=== PATIENT | female | born 1945 | race Caucasian/White ===

== ENCOUNTER 2019-03-22 19:07 | Inpatient (IN) ==
[2019-03-22] MEDS ORDERED: ASPIRIN PO ONE (19:35)
--- NOTE | 2019-03-22 20:43 | Diag Imaging Result Doc PS360 ---
CHEST-2 VIEWS - 03/22/2019 INDICATION: CHEST PAIN COMPARISON: 06/12/2012 FINDINGS: There is some trace reticular nodular infiltrate in the right upper lobe. Heart size and pulmonary vascularity is normal. No pneumothorax or pleural effusion. There is some trace atelectasis at the left lung base. IMPRESSION: Right upper lobe reticulonodular infiltrates suggesting atypical pneumonia. Trace atelectasis in the left lower lobe. Electronically signed by Jalen Gaxiola 03/22/2019 8:41 PM
[2019-03-22 20:44] LABS: BASO# 0.01 X1000 (0.0-0.2); BASO% 0.1 % (0.0-0.8); EOS# 0.04 X1000 (0.0-0.7); EOS% 0.5 % (0.0-10.0); HEMATOCRIT 39.2 % (37.0-47.0); HEMOGLOBIN 13.3 g/dL (12.0-16.0); LYMPH# 1.42 X1000 (1.2-3.4); MCHC 33.9 g/dL (33-37); MCV 88.3 FL (81-99); MONO# 0.75 X1000 (0.11-0.59); MPV 9.6 FL (7.4-10.4); NEUT# 6.11 X1000 (1.4-6.5); NEUT% 73.4 % (42.2-75.2); PLT 267 X1000 (130-400); RBC 4.44 XMIL (4.2-5.4); RDW 13.3 % (11.5-14.5); WBC 8.33 X1000 (4.8-10.8)
[2019-03-22 20:49] LABS: INR 1.3; PROTIME 17.2 Seconds (11.0-16.0)
[2019-03-22 20:50] LABS: PTT 42.2 Seconds (22.3-41.8)
[2019-03-22 21:03] LABS: AGAP 14; ALBUMIN 3.5 g/dL (3.5-5.0); ALKALINE PHOSPHATASE 103 U/L (32-104); BUN 16 mg/dL (8-22); CALCIUM 8.9 mg/dL (8.8-10.2); CHLORIDE 95 mmol/L (98-107); CK PROFILE 61 U/L (24-173); COSMO 270; CREATININE 0.9 mg/dL (0.5-0.9); ESTIMATED GFR > 60; GLUCOSE 150 mg/dL (70-104); GOT 15 U/L (10-30); GPT 10 U/L (10-36); SODIUM 133 mmol/L (136-145); TCO2 24 mmol/L (25-35); TOTAL BILIRUBIN 0.37 mg/dL (0.20-1.00); TOTAL PROTEIN 6.9 g/dL (6.3-8.3)
--- NOTE | 2019-03-22 21:46 | Diag Imaging Result Doc PS360 ---
CT HEAD W/O CONTRAST - 03/22/2019 INDICATION: left leg weakness COMPARISON: 02/08/2018 FINDINGS: Stable focal area of encephalomalacia at the left frontal lobe. No intracranial mass or hemorrhage. The skull is intact. The sinuses, mastoids, and middle ears are clear. IMPRESSION: No acute process. This exam was performed using automated exposure control, adjustment of mA or kV according to patient size, and/or use of iterative reconstruction technique Electronically signed by Jalen Gaxiola 03/22/2019 9:44 PM
--- NOTE | 2019-03-22 21:51 | Diag Imaging Result Doc PS360 ---
CT ANGIOGRAM THORAX - 03/22/2019 INDICATION: chest pain with left leg weakness r/o dissection TECHNIQUE: Axial CT images were obtained after administering intravenous contrast. Coronal MIP images were generated. COMPARISON: None FINDINGS: There is no aneurysm or dissection. There is some scattered vascular disease of the aorta, great vessels, and coronary arteries. Heart size is normal with no pericardial effusion. No pulmonary embolism. No adenopathy. There is a large hiatal hernia with the majority of the stomach up in the chest. Otherwise upper abdominal images appear normal. There are indeed some trace nodular tree-in-bud infiltrates in the lateral right upper lobe corresponding with the finding on the chest x-ray. There is also minimal amount in the right lower lobe. There is some atelectasis at the left lower lobe but no infiltrates. There are moderate degenerative changes of the spine. No acute or suspicious bony lesion. IMPRESSION: 1. No acute vascular abnormality. 2. Faint tree-in-bud nodular infiltrates throughout the right lung. Likely represent atypical pneumonia such as atypical mycobacteria or fungal infection. 3. Fairly large hiatal hernia. This exam was performed using automated exposure control, adjustment of mA or kV according to patient size, and/or use of iterative reconstruction technique Electronically signed by Jalen Gaxiola 03/22/2019 9:49 PM
[2019-03-22] MEDS ORDERED: POTASSIUM CHLORIDE 20% LIQUID PO ONE (22:02)
[2019-03-22] MEDS ORDERED: ZITHROMAX 500 MG/NS 500 MG/250 ML IVPB IV ONE (22:07)
--- NOTE | 2019-03-22 22:17 | PROVIDER DOCUMENTATION ---
This chart was entered by Lidia Hernandez Scribe, acting as scribe for Mariya Lockett MD. HPI-Chest Pain - General Chief Complaint: Chest Pain Stated Complaint: TIGHTNESS IN CHEST/PAIN IN NECK & LEFT ARM Time Seen by Provider: 03/22/19 20:30 Source: patient, family Allergies/Adverse Reactions: Patient Allergies Allergy/AdvReac Type Severity Reaction Status Date / Time sulfamethoxazole Allergy ANAPHYLAXIS Verified 02/16/18 12:41 [From Bactrim] trimethoprim [From Bactrim] Allergy ANAPHYLAXIS Verified 02/16/18 12:41 Sulfa (Sulfonamide AdvReac ANAPHYLAXIS Verified 02/16/18 12:41 Antibiotics) Home Medications: Home Medication List Medication Instructions Recorded Confirmed Last Taken Type Amlodipine [Norvasc] 10 mg PO DAILY 11/24/14 02/16/18 11/24/14 06:00 History Atorvastatin Calcium [Lipitor] 20 mg PO DAILY 11/24/14 02/16/18 11/24/14 08:00 History Citalopram [Celexa] 40 mg PO DAILY 11/24/14 02/16/18 11/24/14 06:00 History Furosemide [Lasix] 20 mg PO DAILY 11/24/14 02/16/18 11/24/14 07:00 History Losartan/Hydrochlorothiazide 1 each PO DAILY 11/24/14 02/16/18 11/24/14 09:00 History [Losartan-Hctz 50-12.5 mg Tab] Pantoprazole Sodium [Protonix] 20 mg PO DAILY 11/24/14 02/16/18 11/24/14 08:00 History Potassium Chloride [Klor-Con M10] 10 meq PO DAILY 11/24/14 02/16/18 11/24/14 08:00 History Tiotropium [place] Inhaler 1 puff INH RTDAILY 11/24/14 02/16/18 Unknown History [Spiriva] Acetaminophen [Tylenol] 500 mg PO BID 02/16/18 02/16/18 Unknown History Albuterol Sulfate [Ventolin Hfa] 90 mcg INH PRN PRN 02/16/18 02/16/18 Unknown History Apixaban [Eliquis] 5 mg PO BID 02/16/18 02/16/18 Unknown History Baclofen 10 mg PO BID PRN PRN #14 tab 02/16/18 Unknown Rx Fluticasone/Vilanterol [Breo 1 puff INH DAILY 02/16/18 02/16/18 Unknown History Ellipta 100-25 Mcg INH] Ondansetron HCl [Zofran] 4 mg PO PRN PRN 02/16/18 02/16/18 Unknown History Ondansetron HCl [Zofran] 4 mg PO Q8H PRN PRN #14 tab 02/16/18 Unknown Rx Tramadol [Ultram] 50 mg PO Q8HR PRN #14 tab 02/16/18 Unknown Rx - History of Present Illness-CP Nature of Presenting Problem: 73 y/o female presents to ED with tight/pressure-like sternal chest pain r adiating to neck/L arm and LLE weakness onset this morning at about 10am. Pt reports her lower extremities are weak at baseline, but LLE is weaker today. Pt also complains of green/yellow productive cough onset 2-3 weeks ago. Pt states breathing exacerbates her symptoms. Pt is alert and oriented. Location: reports: central Chest Pain Radiation: reports: arms (L), neck Quality of Pain: reports: pressure, tightness Severity in ED: moderate Onset/Duration: this morning, other (2-3 weeks ago) Timing: still present Context/Activities at Onset: reports: none Modifying Factors: improves with: nothing Associated Symptoms: reports: denies symptoms Nitro Today/Relief: no nitro taken today Aspirin Treatment Today: 325 mg x 1, provided by ED Prior Chest Pain/Cardiac Workup: reports: heart attack Similar Symptoms Previously?: Yes Recently Seen Here or By Another Healthcare Provider: No Review of Systems - Adult - REVIEW OF SYSTEMS - ADULT Constitutional: denies: chills, fever Eyes: reports: no symptoms reported Ears, Nose, Mouth & Throat: reports: no symptoms reported Cardiovascular: reports: chest pain (radiating to neck and L arm). denies: palpitations Respiratory: reports: cough. denies: shortness of breath Gastrointestinal: denies: abdominal pain, diarrhea, nausea, vomiting Genitourinary: reports: no symptoms reported Musculoskeletal: denies: back pain, joint pain Integumentary: reports: no symptoms reported Neurological: reports: other (LLE weakness). denies: dizziness/vertigo, seizure Psychiatric: reports: no symptoms reported Endocrine: reports: no symptoms reported Hematologic/Lymphatic: reports: no symptoms reported Allergic/Immunologic: reports: no symptoms reported All Other Systems: Reviewed and Negative Past History - Adult - PAST MEDICAL HISTORY-ADULT Review of Records: reports: Old Records Reviewed, Nursing Assessment Review, Medications Reviewed Major Childhood Illnesses: reports: denies history Cardiovascular: reports: HTN, hyperlipidemia, MA Respiratory: reports: COPD Gastrointestinal: reports: GERD Obstetrical/Gynecological: reports: denies history, other (cervical cancer) Genitourinary: reports: denies history Musculoskeletal: reports: denies history Neurological: reports: CVA, TIA Psychiatric: reports: anxiety, depression Endocrine/Immune: reports: denies history Other Conditions: reports: denies history, other cancer (skin), cataract/glaucoma - PRIOR SURGERIES/PROCEDURES Surgical/Procedure History: reports: appendectomy, cholecystectomy, hysterectomy , orthopedic (extremity) (R ankle), other (cataract removal; bilateral corneal implants) - IMMUNIZATION STATUS Childhood Immunizations: See Nurse Assessment Flu Vaccine: See Nurse Assessment - FAMILY HISTORY Family History: reviewed, not pertinent - SOCIAL HISTORY Smoking: less than 1 pack/day Provider spent 3-5 mins advising pt. on dangers of tobacco.: Discussed manners to quit use, and f/u contacts for add'l counseling. Substance Use: none/never Alcohol Use Frequency: never Living Situation: family Physical Exam-General - PHYSICAL EXAM-ADULT Initial Vital Signs Reviewed: Yes - CONSTITUTIONAL General Appearance: appears well, alert, no apparent distress - EYES Eyes: PERRL/EOMI - HEAD, EARS, NOSE, MOUTH & THROAT HENMT: normocephalic/atraumatic, moist mucous membranes - NECK Neck: non-tender, full range of motion - RESPIRATORY Respiratory: chest non-tender, lungs clear, normal breath sounds - CARDIOVASCULAR Cardiovascular: normal peripheral pulses, regular rate, rhythm, no edema, no JVD - GASTROINTESTINAL (ABDOMEN) Abdominal Exam: non tender, soft - MUSCULOSKELETAL Back Exam: normal inspection Extremity: normal range of motion, non-tender, normal gait - SKIN Integumentary: normal color, warm/dry - NEUROLOGIC 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 II-XII nml as tested (Intact), grossly normal, no motor/sensory deficits - PSYCHIATRIC Psych/Mental Status: normal mood/affect, normal thought content, normal thought process, oriented x 3 - HEART Score HEART Score: History: Highly Suspicious HEART Score: ECG: Normal HEART Score: Age: > or = 65 Years HEART Score: Risk Factors for Atherosclerotic Disease: > or = 3 Risk Factors or History of Atherosclerotic Disease HEART Score: Troponin: < or = Normal Limit Total HEART Score:: 6 Progress - PLAN OF CARE/RESULTS Progress/Plan/Lab Results: Vital Signs - 8 hr 03/22/19 19:12 03/22/19 20:04 03/22/19 20:31 Temperature 98.1 F Pulse Rate 84 79 75 Respiratory Rate 18 20 20 Blood Pressure 171/65 187/70 O2 Sat by Pulse Oximetry 94 L 95 03/22/19 21:01 Temperature Pulse Rate 70 Respiratory Rate 18 Blood Pressure 138/58 O2 Sat by Pulse Oximetry 90 L Laboratory Results - last 24 hr 03/22/19 03/22/19 03/22/19 20:02 20:02 20:02 WBC 8.33 RBC 4.44 Hgb 13.3 Hct 39.2 MCV 88.3 MCH 30.0 MCHC 33.9 RDW Std Deviation 13.3 Plt Count 267 MPV 9.6 Immature Gran % (Auto) 0.0 Neut % (Auto) 73.4 Lymph % (Auto) 17.0 L [place] % (Auto) 9.0 Eos % (Auto) 0.5 Baso % (Auto) 0.1 Immature Gran # (Auto) 0.00 Neut # (Auto) 6.11 Lymph # (Auto) 1.42 [place] # (Auto) 0.75 H Eos # (Auto) 0.04 Baso # (Auto) 0.01 PT INR PTT (Actin FS) Sodium 133 L Potassium 3.0 L Chloride 95 L Carbon Dioxide 24 L Anion Gap 14 BUN 16 Creatinine 0.9 Estimated GFR/1.73 m2 > 60 BUN/Creatinine Ratio 18 Glucose 150 H Calculated Osmolality 270 Calcium 8.9 Total Bilirubin 0.37 AST 15 ALT 10 Alkaline Phosphatase 103 Creatine Kinase 61 Troponin T Dry-G-Rftcpnoihvo Pept 219 Total Protein 6.9 Albumin 3.5 Globulin 3.4 Albumin/Globulin Ratio 1.0 03/22/19 03/22/19 20:02 20:02 WBC RBC Hgb Hct MCV MCH MCHC RDW Std Deviation Plt Count MPV Immature Gran % (Auto) Neut % (Auto) Lymph % (Auto) [place] % (Auto) Eos % (Auto) Baso % (Auto) Immature Gran # (Auto) Neut # (Auto) Lymph # (Auto) [place] # (Auto) Eos # (Auto) Baso # (Auto) PT 17.2 H INR 1.30 PTT (Actin FS) 42.2 H Sodium Potassium Chloride Carbon Dioxide Anion Gap BUN Creatinine Estimated GFR/1.73 m2 BUN/Creatinine Ratio Glucose Calculated Osmolality Calcium Total Bilirubin AST ALT Alkaline Phosphatase Creatine Kinase Troponin T < 0.010 Uam-Z-Ucsvxpzrgll Pept Total Protein Albumin Globulin Albumin/Globulin Ratio Orders Category Date Time Status Cardiac Monitoring DIRECTED Care 03/22/19 19:35 Active Oxygen Therapy- ED Nursing DIRECTED Care 03/22/19 19:35 Active Saline Loc NOW Care 03/22/19 19:35 Active CHEST-2 VIEWS [RAD] Stat Exams 03/22/19 19:[address] ANGIOGRAM THORAX [CT] Stat Exams 03/22/19 20:[address] HEAD W/O CONTRAST [CT] Stat Exams 03/22/19 20:39 Completed BLOOD CULTURE [BLDCUL] Stat Lab 03/22/19 22:07 Uncollected CBC WITH ELECTRONIC DIFF [HEME] Stat Lab 03/22/19 20:02 Completed CK PROFILE [SP CHEM] Stat Lab 03/22/19 20:02 Completed COMPREHENSIVE METABOLIC PANEL [CHEM] Stat Lab 03/22/19 20:02 Completed PRO B-NATRIURETIC PEPTIDE Stat Lab 03/22/19 20:02 Completed PROTIME WITH INR [COAG] Stat Lab 03/22/19 20:02 Completed PTT [COAG] Stat Lab 03/22/19 20:02 Completed TROPONIN T Stat Lab 03/22/19 20:02 Completed Aspirin Med 03/22/19 19:35 Discontinued 325 mg PO NOW ONE Azithromycin 500 mg/Ns [Zithromax 500 mg/Ns] Med 03/22/19 22:07 Active 500 mg in 250 ml IV NOW Potassium Chloride 20% Liquid Med 03/22/19 22:02 Discontinued 40 meq PO NOW ONE CP/SOB/Palp >45 yrs of Age Stat Oth 03/22/19 19:35 Ordered EKG [EKG] Stat Ther 03/22/19 19:13 Ordered EKG [EKG] Stat Ther 03/22/19 19:35 Ordered chest pain with leg weakness no focal weakness on exam. Will further evaluate for causes including but not limited to acs, arrythmia, dissection, pe, ptx, pna, cva tia Result Diagrams: 03/22/19 20:02 03/22/19 20:02 - REASSESSMENT Reassessment #1 Status: improving (feeling well, chest pain resolved no focal weakness on re- exam. ASA given and pt with hypokalemia and atypical appearing infiltrate, potassium repleted and azithromycin given. Will admit for further evaluate and treatment as presentation concering for ACS with possible TIA and has overlying pna. Discussed case with Dr. Sidhu, Hospitalist, who will see and admit pt.) - EKG 1 Time of EKG reading by physician:: 19:20 EKG Read and Signed by:: Mariya Locektt EKG Interpretation (*Must complete 3 of following elements*): Abnormal Rate: 84 Rhythm: NSR [place]: left QRS: other (septal infarct; inferior infarct) ID Interval: normal ST Wave: non-specific ST changes (consider lateral ischemia) - XRAY 1 XRAY Study: Chest Impression: Abnormal ([facility] [address], [address], [place] [address] Department of Imaging Patient: JODY KING Date: 03/22/19#: [id number] : 1945DM Status: PRE ERAcct#: [id number] Age/Sex: 73/FRoom/Bed: Loc: ED Ordering Physician: Mariya Lockett MD Family Physician: Enzo Castaneda MD Reason for Procedure: CHEST PAIN ___ Signed CHEST-2 VIEWS - 03/22/2019 INDICATION: CHEST PAIN COMPARISON: 06/12/2012 FINDINGS: There is some trace reticular nodular infiltrate in the right upper lobe. Heart size and pulmonary vascularity is normal. No pneumothorax or pleural effusion. There is some trace atelectasis at the left lung base. IMPRESSION: Right upper lobe reticulonodular infiltrates suggesting atypical pneumonia. Trace atelectasis in the left lower lobe. Electronically signed by Jalen Gaxiola 03/22/2019 8:41 PM 03/22/192040 Interpreting Physician: Jalen Gaxiola MD Dictated Date/Time: 03/22/192038 cc: Mariya Lockett MD; Enzo Castaneda MD) - CT/MRI 1 CT Study: Thorax, other (Chest) Impression: Abnormal ([facility] [address], [address], [place] [address] Department of Imaging Patient: JODY KING Date: 03/22/19#: [id number] : 1945DM [facility] [id number] Age/Sex: 73/FRoom/Bed: Loc: ED Ordering Physician: Mariya Lockett MD Family Physician: Enzo Castaneda MD Reason for Procedure: thuy pain with left leg weakness r/o dissection Signed CT ANGIOGRAM THORAX - 03/22/2019 INDICATION: chest pain with left leg weakness r/o dissection TECHNIQUE: Axial CT images were obtained after administering intravenous contrast. Coronal MIP images were generated. COMPARISON: None FINDINGS: There is no aneurysm or dissection. There is some scattered vascular disease of the aorta, great vessels, and coronary arteries. Heart size is normal with no pericardial effusion. No pulmonary embolism. No adenopathy. There is a large hiatal hernia with the majority of the stomach up in the chest. Otherwise upper abdominal images appear normal. There are indeed some trace nodular tree-in-bud infiltrates in the lateral right upper lobe corresponding with the finding on the chest x-ray. There is also minimal amount in the right lower lobe. There is some atelectasis at the left lower lobe but no infiltrates. There are moderate degenerative changes of the spine. No acute or suspicious bony lesion. IMPRESSION: 1. No acute vascular abnormality. 2. Kev nt tree-in-bud nodular infiltrates throughout the right lung. Likely represent atypical pneumonia such as atypical mycobacteria or fungal infection. 3. Fairly large hiatal hernia. This exam was performed using automated exposure control, adjustment of mA or kV according to patient size, and/or use of iterative reconstruction technique Electronically signed by Jalen Gaxiola 03/22/2019 9:49 PM 03/22/192148 Interpreting Physician: Jalen Gaxiola MD Dictated Date/Time: 03/22/192143 cc: Mariya Lockett MD; Enzo Castaneda MD) 2 CT Study: Head Impression: Normal ([facility] [address] [facility], [address], [place] [address] Department of Imaging Patient: JODY KING Date: 03/22/19#: [id number] : 1945DM Status: [facility]#: [id number] Age/Sex: 73/FRoom/Bed: Loc: ED Ordering Physician: Mariya Lockett MD Family Physician: Enzo Castaneda MD Reason for Procedure: left leg weakness ___ Signed CT HEAD W/O CONTRAST - 03/22/2019 INDICATION: left leg weakness COMPARISON: 02/08/2018 FINDINGS: Stable focal area of encephalomalacia at the left frontal lobe. No intracranial mass or hemorrhage. The skull is intact. The sinuses, mastoids, and middle ears are clear. IMPRESSION: No acute process. This exam was performed using automated exposure control, adjustment of mA or kV according to patient size, and/or use of iterative reconstruction technique Electronically signed by Jalen Gaxiola 03/22/2019 9:44 PM 03/22/192143 Interpreting Physician: Jalen Gaxiola MD Dictated Date/Time: 03/22/19 2143 cc: Mariya Lockett MD; Enzo Castaneda MD) Departure - Departure Date of Disposition Decision: 03/22/19 Time of Disposition Decision: 22:16 DIAGNOSIS: Hypokalemia Pneumonia Qualifiers: Pneumonia type: due to unspecified organism Laterality: unspecified laterality Lung location: unspecified part of lung Qualified Code(s): J18.9 - Pneumonia, unspecified organism Chest pain Qualifiers: Chest pain type: unspecified Qualified Code(s): R07.9 - Chest pain, unspecified Leg weakness Qualifiers: Laterality: left Qualified Code(s): R29.898 - Other symptoms and signs involving the musculoskeletal system Disposition: ADMITTED INPATIENT 09 Certified Medical Emergency: Emergent Condition: Good Referrals and Follow-Ups: Enzo Castaneda MD [Primary Care Provider] - Discharge Education: Steps to Quit Smoking, [id number] - Critical Care Note This patient required my direct & personal management of CC.: No Attestation - Physician/ MORENITA Attestation Patient care was provided by Advanced Practice Provider:: No The physician spent face to face time with patient:: Yes Advanced Practice Provider documentation review:: Supervising physician onsite and consulted in the evaluation and care of this patient. The physician did have a face to face encounter with the patient. This chart was documented by the indicated scribe, (Lidia Hernandez Scribe) and accurately reflects the services I performed and decisions made by me, Mariya Lockett MD, as attested by the provider's signature.
--- NOTE | 2019-03-23 00:45 | HISTORY AND PHYSICAL ---
PRIMARY CARE PHYSICIAN: Dr. Castaneda. CHIEF COMPLAINT: Coughing, chest pain, left-sided weakness for the past day or so. HISTORY OF PRESENTING ILLNESS: A 73-year-old female with a history of COPD, hypertension, hyperlipidemia, CVA, coronary artery disease, who had presented to emergency department with 1-day history of having a productive cough, chest discomfort and left-sided weakness. She was evaluated in the emergency department and she had imaging done which did show right lung infiltrates suspicious for atypical pneumonia. The patient does have a previous history of TIA and CVA and was complaining of left-sided weakness which seems to have resolved. The patient also having complaints of productive cough of yellowish material. She states that she was having low-grade temperature. At time of my examination, patient had denied any headache, hemoptysis, melena, but complained of chest discomfort, shortness of breath and left-sided weakness. PAST MEDICAL HISTORY: Includes COPD, hypertension, hyperlipidemia, CVA, TIA and coronary artery disease. PAST SURGICAL HISTORY: Right ankle surgery, hysterectomy, cataract surgery, cholecystectomy, appendectomy. ALLERGIES: Bactrim. CURRENT MEDICATIONS: Ventolin inhaler q.6 hours, Norvasc 10 mg p.o. daily, Eliquis 5 mg p.o. b.i.d., Lipitor 20 mg p.o. daily, Celexa 40 mg p.o. daily, Lasix 20 mg p.o. daily, losartan HCT 50/12.5 mg p.o. daily, omeprazole 20 mg p.o. daily, Zofran 4 mg p.o. q.8 hours, tramadol 50 mg p.o. q.8 hours. SOCIAL HISTORY: 60+ pack years history of smoking. Denies any history of alcohol or illicit drug use. She lives with her daughter. FAMILY HISTORY: Positive for coronary artery disease in mother. REVIEW OF SYSTEMS: Fourteen point review of system as listed in HPI. Other systems negative. PHYSICAL EXAMINATION: GENERAL: Cooperative, friendly elderly female. She is resting more comfortably now. VITAL SIGNS: Temperature 98.1 degrees, pulse 84, respiration 18, blood pressure 171/65. HEENT: Atraumatic, normocephalic. Extraocular movements intact. PERRLA. NECK: No masses. CHEST: Rhonchi. CARDIOVASCULAR: Regular rate and rhythm. ABDOMEN: Soft. Positive bowel sounds. EXTREMITIES: No edema. NEUROLOGIC: She is awake, alert, oriented x3. Strength 5/5 all extremities. Speech is intact. GENITOURINARY: No bladder distention. SKIN: Warm. LABORATORIES AND STUDIES: WBCs 8.33, hemoglobin 13.3, hematocrit 39.2, platelets 267,000. Sodium 133, potassium 3.0, chloride 95, CO2 is 24, BUN is 16, creatinine 0.9, glucose 150. CT of the head, no acute process. CT of the chest shows infiltrate throughout the right lung. ASSESSMENT: A 73-year-old female with a history of chronic obstructive pulmonary disease, hypertension, cerebrovascular accident, and coronary artery disease, who had presented to the emergency department with 1-day history of having chest discomfort, productive cough, left-sided weakness. She was evaluated in the emergency department. She had imaging done which did show suspicion for pneumonia. Subsequently, due to her presenting symptoms she will require admission for further management. 1. Right-sided infiltrate, suspected atypical pneumonia. 2. Possible transient ischemic attack. We will need to rule out cerebrovascular accident. 3. Chest pain. 4. Chronic obstructive pulmonary disease. 5. Hypertension. PLAN: 1. We will admit patient to medical floor with telemetry. 2. We will check blood cultures and start patient on antibiotics. 3. Continue with neuro workup and we will consult Neurology for left-sided weakness. 4. Continue to trend troponins. 5. Continue with DuoNebs p.r.n. 6. Monitor blood pressure closely. Resume antihypertensive agent. 7. The patient is already on Eliquis and this will suffice for DVT prophylaxis. 8. We will continue to follow, and reassess and make further recommendation based on patient's clinical course. cc: Raleigh Sidhu MD
[2019-03-23] MEDS ORDERED: ROCEPHIN 1 GM in NS 50 ML IV SCH (00:50)
[2019-03-23] MEDS ORDERED: ZOFRAN IV PRN (00:50)
[2019-03-23] MEDS: DUONEB (A & A) INH SCH ×5 (03:10→21:00)
[2019-03-23] MEDS: PRILOSEC PO SCH (06:20)
[2019-03-23 07:41] LABS: EOS# 0.05 X1000 (0.0-0.7); EOS% 0.8 % (0.0-10.0); HEMATOCRIT 40.4 % (37.0-47.0); HEMOGLOBIN 13.6 g/dL (12.0-16.0); LYMPH# 1.27 X1000 (1.2-3.4); LYMPH% 19.3 % (20.5-51.1); MCHC 33.7 g/dL (33-37); MCV 89.2 FL (81-99); MONO# 0.79 X1000 (0.11-0.59); MPV 9.5 FL (7.4-10.4); NEUT# 4.47 X1000 (1.4-6.5); NEUT% 67.9 % (42.2-75.2); PLT 281 X1000 (130-400); RBC 4.53 XMIL (4.2-5.4); RDW 13.3 % (11.5-14.5); WBC 6.58 X1000 (4.8-10.8)
[2019-03-23 07:46] LABS: URINE SOURCE CLEAN CATCH
[2019-03-23 08:00] LABS: BILIRUBIN URINE NEGATIVE (NEGATIVE); BLOOD URINE NEGATIVE (NEGATIVE); COLOR STRAW; GLUCOSE URINE NEGATIVE (NEGATIVE); KETONE URINE NEGATIVE (NEGATIVE); LEUKOCYTES URINE NEGATIVE (NEGATIVE); NITRITE URINE NEGATIVE (NEGATIVE); PH URINE 7.5; PROTEIN URINE TRACE mg/dL (NEGATIVE); TURBIDITY URINE CLEAR (CLEAR); UROBILINOGEN URINE NORMAL (NORMAL)
[2019-03-23 08:01] LABS: UR EPITHELIAL CELLS <10 /HPF (<10); URINE BACTERIA NEGATIVE /HPF; URINE RBC <10 /HPF (<10); URINE WBC <10 /HPF (<10)
[2019-03-23 08:12] LABS: AGAP 13; BUN 13 mg/dL (8-22); CALCIUM 9.1 mg/dL (8.8-10.2); CHLORIDE 97 mmol/L (98-107); COSMO 272; CREATININE 0.7 mg/dL (0.5-0.9); ESTIMATED GFR > 60; GLUCOSE 99 mg/dL (70-104); POTASSIUM 3.7 mmol/L (3.5-5.1); SODIUM 136 mmol/L (136-145); TCO2 26 mmol/L (25-35)
[2019-03-23] MEDS: CELEXA PO SCH (10:16)
[2019-03-23] MEDS: ELIQUIS PO SCH ×2 (10:17→21:30)
[2019-03-23] MEDS: NORVASC PO SCH (10:17)
[2019-03-23] MEDS: LASIX PO SCH (10:17)
[2019-03-23] MEDS: KLOR-CON PO SCH (10:17)
[2019-03-23] MEDS: LIPITOR PO SCH (10:17)
[2019-03-23] MEDS: HYZAAR 50/12.5 MG PO SCH (10:17)
[2019-03-23] MEDS: ULTRAM PO PRN (11:04)
[2019-03-23] MEDS: MAXIPIME 2 GM in NS 100 ML IV SCH ×2 (11:17→21:33)
--- NOTE | 2019-03-23 18:14 | PROGRESS NOTE ---
DATE: 03/23/2019 SUBJECTIVE: The patient states that she feels a little bit better today. No acute events noted overnight. OBJECTIVE: Vital Signs: Temperature 97.8 degrees, blood pressure 135/61, heart rate 70, respirations 20, O2 saturation is 92% on room air. General: This is a chronically ill-appearing, elderly female lying in bed, in no acute distress. Heart: S1, S2 normal. Regular rate and rhythm. Lungs: Equal air entry bilaterally. No crackles. No rales. Abdomen: Positive bowel sounds. Soft, nontender, nondistended. Extremities: No edema. No cyanosis. Neurologic: The patient is alert and oriented x3. LABS: Reviewed. ASSESSMENT AND PLAN: 1. Atypical lung infection. The CT of the thorax shows tree-in-bud nodular infiltrates in the right lung. Blood and sputum cultures have been ordered. We will continue with antibiotic therapy and consult with ID for further treatment recommendations. 2. History of cerebrovascular accident. The patient is on Lipitor and Eliquis. 3. Hypertension. Continue on the current antihypertensive regimen. 4. Gastroesophageal reflux disease. Continue on Prilosec. 5. Will consult physical therapy. cc: Gladys Christie MD
[2019-03-23] MEDS ORDERED: VANCOMYCIN IV PER PHARMACY MISC SCH (21:45)
[2019-03-23] MEDS ORDERED: ZITHROMAX 500 MG/NS 500 MG/250 ML IVPB IV SCH (22:00)
[2019-03-23] MEDS ORDERED: VANCOMYCIN 1,600 MG in NS 250 ML IV ONE (23:00)
[2019-03-24] MEDS: PRILOSEC PO SCH (06:12)
--- NOTE | 2019-03-24 07:20 | EKG Report ---
Test Performed on : 03/22/2019 7:18:51 PM Test Reason : cp Blood Pressure : / mmHG Vent. Rate : 084 BPM Atrial Rate : 084 BPM P-R Int : 166 ms QRS Dur : 072 ms QT Int : 372 ms P-R-T Axes : 045 -41 111 degrees QTc Int : 439 ms Normal sinus rhythm. Left axis deviation Septal infarct (cited on or before 20-SEP-2009) Inferior infarct (cited on or before 12-JUN-2012) ST & T wave abnormality, consider lateral ischemia Abnormal ECG When compared with ECG of 12-JUN-2012 20:58, Questionable change in initial forces of Anteroseptal leads T wave inversion more evident in Lateral leads Unconfirmed Result
[2019-03-24 07:28] LABS: BASO# 0.01 X1000 (0.0-0.2); BASO% 0.2 % (0.0-0.8); EOS# 0.07 X1000 (0.0-0.7); EOS% 1.1 % (0.0-10.0); HEMATOCRIT 36.8 % (37.0-47.0); HEMOGLOBIN 12.1 g/dL (12.0-16.0); LYMPH# 1.32 X1000 (1.2-3.4); LYMPH% 21.1 % (20.5-51.1); MCH 29.7 PG (27-31); MCHC 32.9 g/dL (33-37); MCV 90.2 FL (81-99); MONO# 0.79 X1000 (0.11-0.59); MONO% 12.6 % (1.7-9.3); MPV 9.6 FL (7.4-10.4); NEUT# 4.06 X1000 (1.4-6.5); PLT 245 X1000 (130-400); RBC 4.08 XMIL (4.2-5.4); RDW 13.3 % (11.5-14.5); WBC 6.25 X1000 (4.8-10.8)
[2019-03-24] MEDS: HYZAAR 50/12.5 MG PO SCH (08:25)
[2019-03-24] MEDS: LASIX PO SCH (08:25)
[2019-03-24] MEDS: CELEXA PO SCH (08:25)
[2019-03-24] MEDS: NORVASC PO SCH (08:25)
[2019-03-24] MEDS: LIPITOR PO SCH (08:25)
[2019-03-24] MEDS: KLOR-CON PO SCH (08:25)
[2019-03-24] MEDS: ELIQUIS PO SCH ×2 (08:25→20:46)
[2019-03-24 08:35] LABS: AGAP 12; BUN 14 mg/dL (8-22); CHLORIDE 98 mmol/L (98-107); COSMO 272; CREATININE 0.8 mg/dL (0.5-0.9); ESTIMATED GFR > 60; GLUCOSE 94 mg/dL (70-104); POTASSIUM 3.8 mmol/L (3.5-5.1); SODIUM 136 mmol/L (136-145); TCO2 26 mmol/L (25-35)
--- NOTE | 2019-03-24 09:48 | INFECTIOUS DISEASE CONSULT REP ---
DATE: 03/24/2019 CONCLUSION: The patient is admitted to the hospital with a right lung pneumonia. On CT scan, the pneumonia involves the whole right lung. On chest x-ray, it involves the right upper lobe with a reticular nodular infiltrate suggesting atypical pneumonia. There is a trace atelectasis seen in the left lower lobe. The patient has one of two blood cultures growing a coagulase-negative staphylococcus. This represents a contaminant and does not require treatment with an antibiotic. RECOMMENDATIONS: I have discontinued the patient's current antibiotics and I have ordered the patient to be on Rocephin and doxycycline. The patient was on azithromycin but it can interact with some of the patient's medications to cause a prolongation of the QT interval. Likewise, with Levaquin, the same can happen with the interaction with two of the patient's medications. Therefore, I have put the patient on doxycycline to go along with Rocephin. As mentioned above, the patient one blood culture is growing a coagulase-negative staphylococcus. It is a contaminant and does not require antibiotic treatment. DISCUSSION: The patient said she had the sudden onset a day ago of chest pain, arm pain, and cough. She says that she produces a green sputum at times. Lab studies done thus far show a CBC with a white count of 6250, hemoglobin 12.1, and platelet count 245,000. Creatinine is 0.8. GFR is greater than 60. CK is 61. Urinalysis did not show any white cells or bacteria. The patient had two blood cultures drawn. One is growing a coagulase-negative staphylococcus. A CT scan of the chest shows a right lung infiltrate and a chest x-ray showed that it was in the right upper lobe. It was reticulonodular in appearance. PAST MEDICAL HISTORY/REVIEW OF SYSTEMS: Eyes and Ears: She wears glasses but her hearing is okay. Neck: No stiffness. Respiratory: She has dyspnea on exertion. She did not say that she coughed frequently other than the coughing she had a day ago. Cardiac: She did have chest pain a day ago, as mentioned above, but before that, she was not having chest pain. She did tell me that she occasionally has skipped beats. GI: No nausea, vomiting, or diarrhea. : No dysuria or flank pain. Bones, Joints, and Muscles: No swollen joints or muscle aching. Neurologic: No seizures. No loss of motor or sensory function. MANAGER MASS HISTORY: She is a 4, para 3, AB 1. She has had a hysterectomy and bilateral salpingo-oophorectomy because she had cervical cancer. PREVIOUS HOSPITALIZATIONS AND OPERATIONS: She has had labor and deliveries, a miscarriage, a hysterectomy and bilateral salpingo-oophorectomy for cervical cancer. She has also had surgery on her right ankle that she fractured. She also has had a stroke. MEDICAL DISEASES: Positive for hypertension, stroke, cervical cancer, COPD, cigarette smoking, osteoarthritis, hyperlipidemia, and gastroesophageal reflux disease. INFECTIOUS DISEASE HISTORY: Positive for pneumonia. Negative for UTI. FAMILY HISTORY: Positive for hypertension, myocardial infarction, and cancer. [place]IAL HISTORY: [place] . She lives with her daughter. She has a dog as a pet. ALLERGIES: She is allergic to sulfa. HOME MEDICATIONS: Her home medications include the following: Ventolin inhaler, Norvasc, Eliquis, Lipitor, Celexa, fluticasone, Lasix, losartan/hydrochlorothiazide, omeprazole, Zofran, potassium, Spiriva inhaler, and tramadol. PHYSICAL EXAMINATION: Vital Signs: Temperature is 97.9 degrees, pulse 68, respirations 18, blood pressure is 134/61. The patient is 5 feet 6 inches tall, weighs 142 pounds. General: This is a chronically ill-appearing, elderly female. She is in no acute distress. Head, Eyes, Ears, Nose, and Throat: She can hear my spoken words and see near objects. She does not have any white patches on her tongue. She is not draining anything from her nose or ears. Neck: No meningismus. Thorax: The patient has an increased AP diameter of the chest. Lungs: Clear to auscultation. Cardiovascular: The patient's heart rate is regular. Abdomen: Soft and nontender. Extremities: There is no leg edema. Neurologic: The patient is alert. She can move her extremities. There is no tremor. Her sensation is intact to touch. Her memory as regarding her medical history was slightly diminished. Integument: No rash noted. Thank you for the consult. cc: Jordy Gann MD
[2019-03-24] MEDS: DOXYCYCLINE PO SCH ×2 (09:54→20:46)
[2019-03-24] MEDS: DUONEB (A & A) INH SCH ×3 (10:12→22:13)
[2019-03-24] MEDS: ROCEPHIN 2 GM in NS 50 ML IV SCH (11:12)
--- NOTE | 2019-03-24 12:22 | PROGRESS NOTE ---
DATE: 03/24/2019 SUBJECTIVE: The patient is resting comfortably in bed. No acute events noted overnight. OBJECTIVE: Vital Signs: Temperature 97.9 degrees, blood pressure 134/61, heart rate 68, respirations 18, and O2 saturation 92% on room air. General: This is a chronically ill-appearing elderly female lying in bed in no acute distress. Heart: S1, S2 normal. Regular rate and rhythm. Lungs: Clear to auscultation bilaterally. Abdomen: Positive bowel sounds. Soft, nontender, and nondistended. Extremities: No edema. No cyanosis. Neurologic: The patient is alert and oriented x3. LABORATORY: White blood cell count 6.2, hemoglobin 12, hematocrit 36, and platelets 242,000. Sodium 136, potassium 3.8, chloride 98, CO2 26, BUN 14, creatinine 0.8, and glucose 94. ASSESSMENT AND PLAN: 1. Right lung pneumonia. Continue with antibiotics as directed by Dr. Gann. Continue with supplemental oxygen. 2. History of cerebrovascular accident. Continue on Lipitor and Eliquis. 3. Hypertension. Continue on the current antihypertensive regimen. 4. Gastroesophageal reflux disease. Continue on Prilosec. 5. Continue with physical therapy. cc: Gladys Christie MD
[2019-03-24] MEDS: ULTRAM PO PRN (12:39)
--- NOTE | 2019-03-24 15:00 | CONSULTATION ---
DATE OF CONSULTATION: 03/24/2019 Ms. Salazar is 73 years old and there is a remote history of stroke with question of more recent neurologic event. History to me from the patient is that she had some soreness in her chest and neck, discomfort turning her head, shortness of breath, and coughing. She has been determined to have right lung pneumonia. She noticed some left knee pain which is chronic and intermittent. She had some stiffness in the fingers on both hands. She did not have any definite new focal neurologic problem with recent episode. She initially presented with right hemiparesis about 11 years ago. She had a subsequent stroke with additional right hemiparesis. There was initial global dysphasia. Workup showed left hemisphere infarction and complete left internal carotid occlusion. She has been managed conservatively and has not had any further neurologic events. Workup here includes noncontrast CT showing the old left frontal encephalomalacia which has similar appearance to scans going back at least to 2014. A 03/04/2019 carotid ultrasound showed right carotid disease to be mild and left internal carotid occlusion. She has been afebrile. Systolic blood pressures have ranged 120s to 180s. Heart rate has ranged 60s to 80s. There is a past history of hypertension, dyslipidemia, ischemic heart disease, and COPD. Her preadmission medications were recorded acetaminophen, albuterol inhaler p.r.n., amlodipine 10 mg daily, Eliquis 5 mg b.i.d., atorvastatin 20 mg daily, citalopram 40 mg daily (she told me she missed the last dose of that prior to admission), Breo Ellipta 1 puff daily, furosemide 20 mg daily, losartan/hydrochlorothiazide 50/12.5 daily, omeprazole 20 mg, ondansetron 4 mg p.r.n., KCl, Spiriva inhaler 1 puff daily, tramadol 50 mg p.r.n. On exam, Ms. Salazar is awake, alert, attentive, appropriate, oriented. She recognized me from prior evaluation more than 10 years ago. Her speech is minimally dysarthric. Language function is grossly intact but on careful testing, she has a little bit of hesitation and a little bit of word- finding trouble. She did well with commands requiring right/left distinction and digit distinction. Visual crawford are full. Extraocular movements are full. Facial motility is good bilaterally. I can overcome the right deltoid grading 4/5 and right iliopsoas 3/5. She cannot completely dorsiflex the right foot. Tone is increased in the right limbs compared to the left. She did well on [id number] testing bilaterally. Strength is normal in the left limbs. She reports diminished pinprick appreciation over the right palm compared to the left. Plantar response is flexor on the left and equivocal on the right. Reflexes 1+ at the left ankle and uncertain at the right ankle. I did not test her gait. IMPRESSION: 1. Current admission with pneumonia, cough, chest discomfort. I do not think there was a new neurologic event. 2. History of dominant left hemisphere stroke more than 10 years ago with transient dysphasia, significant recovery of right hemiparesis. I do not find evidence of new neurologic event. I encouraged her to continue aggressive management of her cerebrovascular risk factors. I do not have any suggestion for change in neurologic management today. I will be glad to see Ms. Salazar again, if needed. cc: MD STELLA Harris III
[2019-03-24] MEDS ORDERED: VANCOMYCIN 1 GM/NS 1 GM/250 ML IVPB IV SCH (23:00)
[2019-03-25] MEDS: PRILOSEC PO SCH (06:39)
[2019-03-25 07:59] LABS: BASO# 0.01 X1000 (0.0-0.2); BASO% 0.1 % (0.0-0.8); EOS% 1.3 % (0.0-10.0); HEMATOCRIT 41.8 % (37.0-47.0); HEMOGLOBIN 13.8 g/dL (12.0-16.0); LYMPH# 1.44 X1000 (1.2-3.4); LYMPH% 18.8 % (20.5-51.1); MCH 29.5 PG (27-31); MCV 89.3 FL (81-99); MONO# 0.82 X1000 (0.11-0.59); MONO% 10.7 % (1.7-9.3); MPV 9.8 FL (7.4-10.4); NEUT% 69.1 % (42.2-75.2); PLT 299 X1000 (130-400); RBC 4.68 XMIL (4.2-5.4); WBC 7.67 X1000 (4.8-10.8)
[2019-03-25 08:25] LABS: AGAP 15; BUN 16 mg/dL (8-22); CHLORIDE 94 mmol/L (98-107); COSMO 269; CREATININE 0.7 mg/dL (0.5-0.9); GLUCOSE 91 mg/dL (70-104); POTASSIUM 3.2 mmol/L (3.5-5.1); SODIUM 134 mmol/L (136-145); TCO2 25 mmol/L (25-35)
[2019-03-25 08:26] LABS: ESTIMATED GFR > 60
[2019-03-25] MEDS: ELIQUIS PO SCH ×2 (09:10→20:56)
[2019-03-25] MEDS: CELEXA PO SCH (09:10)
[2019-03-25] MEDS: LIPITOR PO SCH (09:10)
[2019-03-25] MEDS: DOXYCYCLINE PO SCH ×2 (09:10→20:56)
[2019-03-25] MEDS: KLOR-CON PO SCH (09:10)
[2019-03-25] MEDS: LASIX PO SCH (09:10)
[2019-03-25] MEDS: HYZAAR 50/12.5 MG PO SCH (09:10)
[2019-03-25] MEDS: ROCEPHIN 2 GM in NS 50 ML IV SCH (09:10)
[2019-03-25] MEDS: NORVASC PO SCH (09:10)
[2019-03-25] MEDS: DUONEB (A & A) INH SCH ×3 (10:23→22:05)
--- NOTE | 2019-03-25 13:47 | PROGRESS NOTE ---
DATE: 03/25/2019 SUBJECTIVE: Ms. Salazar was admitted on 03/22/2019. She is a patient of Dr. Castaneda who came in with coughing, chest pain, and left-sided weakness for a day or so. She has a history of COPD, hypertension, hyperlipidemia, CVA, and coronary artery disease presented to the emergency room department with a 1-day history of having productive cough, chest discomfort, and left-sided weakness. She was evaluated in the emergency room. Imaging showed right lung infiltrate suspicious for atypical pneumonia. The patient does have a history of TIA and CVA, and was complaining of left-sided weakness which seems to have resolved. The patient also having complaints of productive cough and yellowish material. She states that she has been having low- grade temperature. PAST MEDICAL HISTORY: 1. COPD. 2. Hypertension. 3. Hyperlipidemia. 4. CVA. 5. TIA. 6. Coronary artery disease. PAST SURGICAL HISTORY: Right ankle surgery, hysterectomy, cataract surgery, and cholecystectomy. She was admitted with right-sided infiltrate suspected pneumonia, possible transient ischemic attack, chest pain, atypical, COPD exacerbation, and hypertension. She has made good improvement. She feels like she is breathing better. PHYSICAL EXAMINATION: She remains afebrile, temperature 97.5 degrees, pulse 65, respirations 17, and blood pressure 136/56. Pupils are equal and round. Lungs are clear in all lung crawford. Cardiovascular exam with regular rhythm and rate without murmur or S3. Abdomen is soft. Skin is warm and dry. LABORATORY: Blood work looked at. White count 7670, hematocrit 41, platelet count is 299,000. Sodium 134, potassium 3.2, chloride 94, BUN is 16, and creatinine 0.7. ASSESSMENT AND PLAN: 1. Pneumonia, improving. Continue present antibiotics, present treatment, and pulmonary toilet. 2. History of dominant left hemisphere stroke more than 10 years ago with transient dysphagia significant for recovery of right hemiparesis. No evidence of new neurologic event. Appreciate Dr. Cannon's help. She is improving and hoping to go home soon. Looking over orders, I do not see any change. Continue physical therapy. Cultures for coagulase-negative Staph, and one of the blood cultures. Other blood culture was negative. We will continue to see if she may be ready to go home tomorrow. cc: Lázaro Cao MD
--- NOTE | 2019-03-25 16:04 | INFECTIOUS DISEASE PROGRESS NO ---
DATE: 03/25/2019 PRESENT ILLNESS: Ms. Salazar is being treated for a right-sided pneumonia. MEDICATIONS: She is receiving ceftriaxone 2 g IV every 24 hours and doxycycline 100 mg by mouth twice daily or every 12 hours. PHYSICAL EXAMINATION: Vital Signs: Temperature is 97.5 degrees, pulse rate 65, respiratory rate 17, blood pressure 136/56, O2 saturation is 97% on 2 L nasal cannula. General: This is a chronically ill-appearing elderly female. She is sitting up in the bed, currently in no acute distress. HEENT: Atraumatic, normocephalic. Oral mucous membranes are pink and moist. Conjunctivae are pink. Neck has a decrease in suppleness. Trachea is midline. Cardiovascular: Heart rate and rhythm are regular. Normal sinus rhythm on the monitor. Respiratory: Lung sounds are bilaterally clear to auscultation and somewhat diminished on the right. No work of breathing is noted. Abdomen: Soft, round, and nontender. Bowel sounds are active. Neurologic: She is awake, alert, and oriented. She walks around the room with a cane and has walked around in the hallways with assistance. DIAGNOSTIC STUDIES: Today her white count is 7.67, hemoglobin 13.8, platelet count 299,000. Creatinine 0.7, estimated GFR is greater than 60. No imaging reports today. ASSESSMENT AND PLAN: Ms. Salazar is being treated for right-sided pneumonia. Today she is feeling much better and is anxious to go home tomorrow. Dr. Cao has also mentioned this in his note, so we will go ahead and provide her with oral doxycycline 100 mg by mouth every 12 hours for 14 days, as well as Ceftin 500 mg by mouth every 12 hours for 14 days. Thes prescriptions are on the front of her chart. We have already scheduled an appointment for 2 weeks. At that time, we will recheck a chest x-ray and monitor her progress. These plans have been discussed with and recommended by Dr. Gann. COMORBIDITIES: For Ms. Salazar include that she is elderly, with chronic obstructive pulmonary disease, and history of cerebrovascular accident, transient ischemic attack, and coronary artery disease. Dictated by ANURADHA Bland for Jordy Gann MD cc: Jordy Gann MD [facility] CENTERJenna
[2019-03-25] MEDS: ULTRAM PO PRN (17:21)
[2019-03-26] MEDS: PRILOSEC PO SCH (06:25)
[2019-03-26 07:42] LABS: AGAP 10; BUN 17 mg/dL (8-22); CALCIUM 8.8 mg/dL (8.8-10.2); CHLORIDE 95 mmol/L (98-107); COSMO 272; CREATININE 0.7 mg/dL (0.5-0.9); ESTIMATED GFR > 60; GLUCOSE 102 mg/dL (70-104); POTASSIUM 3.3 mmol/L (3.5-5.1); SODIUM 135 mmol/L (136-145); TCO2 30 mmol/L (25-35)
[2019-03-26] MEDS: ELIQUIS PO SCH (08:45)
[2019-03-26] MEDS: ROCEPHIN 2 GM in NS 50 ML IV SCH (08:45)
[2019-03-26] MEDS: LIPITOR PO SCH (08:45)
[2019-03-26] MEDS: DOXYCYCLINE PO SCH (08:46)
[2019-03-26] MEDS: LASIX PO SCH (08:46)
[2019-03-26] MEDS: CELEXA PO SCH (08:46)
[2019-03-26] MEDS: HYZAAR 50/12.5 MG PO SCH (08:46)
[2019-03-26] MEDS: NORVASC PO SCH (08:46)
[2019-03-26] MEDS: KLOR-CON PO SCH (08:46)
[2019-03-26] MEDS: DUONEB (A & A) INH SCH (10:00)
[2019-03-26 12:05] VITALS: BP 149/68
--- NOTE | 2019-03-26 13:30 | DISCHARGE SUMMARY ---
ADMISSION DATE: 03/22/2019 DISCHARGE DATE: 03/26/2019 ATTENDING PHYSICIAN: She is a patient of Dr. Enzo Castaneda. HISTORY OF PRESENT ILLNESS: A 73-year-old with a history of COPD, hypertension, hyperlipidemia, CVA, coronary artery disease, who presented to the emergency department with a 1-day history of having productive cough, chest discomfort, left-sided weakness. She was evaluated in the emergency department, and imaging done showed right lung infiltrate suspicious for atypical pneumonia. The patient does have a previous history of TIA and CVA, and was complaining of left- sided weakness, which seemed to have resolved. Patient also having complaints of productive cough and yellowish material. States that she is having low-grade temperature. She denied any headache, hemoptysis, melena, but complained of chest discomfort, shortness of breath, and left- sided weakness. PAST MEDICAL HISTORY: COPD, hypertension, hyperlipidemia, CVA, TIA, coronary artery disease. PAST SURGICAL HISTORY: Right ankle surgery, hysterectomy, cataract surgery, cholecystectomy, and appendectomy. ALLERGIES: Bactrim. ADMISSION DIAGNOSES: 1. Right-sided infiltrate, treated for pneumonia, community-acquired. Some of the radiographic appearance looked atypical. 2. Possible transient ischemic attack. 3. Chest pain, atypical, nonspecific. 4. Chronic obstructive pulmonary disease. 5. Hypertension. HOSPITAL COURSE: The patient was given antibiotics and showed progressive improvement, supplementary O2 and breathing cleared. Infectious Disease was asked to see. Dr. Gann saw and felt that she had a right-sided pneumonia. On CT scan, pneumonia involves the whole right lung. On the x-ray, it moves the right upper lobe, and a reticular nodular infiltrate suggesting atypical pneumonia, with trace atelectasis in the left lower lobe. Blood cultures 1 of 2 grew out coagulase-negative Staphylococcus, which I believe to represent a contaminant. The patient was put on Rocephin and doxycycline, and stopped the azithromycin and watched hemodynamically, did well, and breathing improved, radiographically improved as well, and received ceftriaxone 2 grams IV every 24 hours, doxycycline 100 mg by mouth twice a day. She is feeling much better and is anxious to go home, so will put her on doxycycline 100 mg every 12 hours for 14 days, Ceftin 500 mg twice a day for 14 days, and she can go home. DISCHARGE MEDICATIONS: Eliquis 5 mg b.i.d., Norvasc 10 mg a day, Lipitor 20 mg a day, doxycycline 100 mg twice a day, Celexa 40 mg a day, Lasix 20 mg daily, Hyzaar 50/12.5 one a day, Prilosec 20 mg a day, Klor-Con 10 mEq daily, tramadol 50 mg every 8 hours p.r.n., and then we will give her the Ceftin 500 mg twice a day for 2 weeks as well. cc: Lázaro Cao MD
== END 2019-03-26 14:16 | disposition home health service (06) | DRG 194 ==
LOC: ED 19:07 → 3N 23:54 → SUATTDRO 23:54
PROVIDERS: ATTEND Emergency Medicine
CPT/HCPCS: 70450; 71020; 71046; 71275; 80048; 80053; 81001; 82550; 83880; 84484; 85025; 85610; 85730; 87040; 93005; 94640; 94760; 94761; 96365; 97116; 97162; 97165; 97530; 97535; 99285; A9270; J0456; J0692; J0696; J3370; J7050; Q9967